=== PATIENT | male | born 1980 | race Caucasian/White ===

== ENCOUNTER 2025-10-04 09:12 | Outpatient (REF) | payer OTHER, SELFPAY ==
--- NOTE | 2025-10-04 09:19 | EMG_ITS ---
Chief complaint: Right elbow and shoulder pain, radiculopathy Referred by:?César Teague MD Procedure done: Right upper extremity NCS/EMG Right median and ulnar motor studies were performed. Right median and ulnar mixed sensory studies were performed. Right radial sensory and median and lateral antecubital brachial sensory studies were performed and needle examination was performed. Finding: Right median motor distal latencies was moderately prolonged. Similar pattern was noted with median mixed distal latencies with reduction of amplitude and slow conduction velocity. Mild slowing of ulnar transmission was noted across elbow. Impression: 1. [id number] right median neuropathy across carpal tunnel 2. Mild ulnar neuropathy across cubital tunnel [place] [id number] 1 extremity MTDD
== END 2025-10-04 09:13 | disposition home or self-care (01) ==
LOC: HO.NEURO 09:12
PROVIDERS: PCP Family Medicine; Visit Provider Family Medicine
DX: M54.12 Radiculopathy, cervical region (principal); M25.521 Pain in right elbow; M25.511 Pain in right shoulder; R29.898 Other symptoms and signs involving the musculoskeletal system
CPT/HCPCS: 95886; 95910

== ENCOUNTER → 2025-10-04 09:19 | Outpatient (BNV) | payer OTHER, SELFPAY | PROVIDERS: PCP Family Medicine; Visit Provider Psychiatry & Neurology Neurology | DX: G56.01 Carpal tunnel syndrome, right upper limb (principal) | CPT/HCPCS: 95886; 95910 ==